=== PATIENT | male | born 1940 | race Caucasian/White ===

== ENCOUNTER 2022-12-07 11:15 | Outpatient (RCR) | payer MEDICARE, BC, SELFPAY | END 2023-02-21 16:30 | disposition home or self-care (01) | PROVIDERS: PCP Family Medicine; Visit Provider Physician Assistant | DX: H81.12 Benign paroxysmal vertigo, left ear (principal); R26.81 Unsteadiness on feet; Z51.89 Encounter for other specified aftercare | CPT/HCPCS: 95992; 97112; 97140; 97161; 97535 ==

== ENCOUNTER 2023-09-07 14:30 | Outpatient (RCR) | payer MEDICARE, BC, SELFPAY | END 2023-11-07 14:12 | disposition home or self-care (01) | PROVIDERS: PCP Family Medicine; Visit Provider Family Medicine | DX: M17.12 Unilateral primary osteoarthritis, left knee (principal); Z51.89 Encounter for other specified aftercare | CPT/HCPCS: 97110; 97140; 97161 ==

== ENCOUNTER 2024-05-21 10:00 | Outpatient (RCR) | payer MEDICARE, BC, SELFPAY | END 2024-05-21 10:50 | disposition home or self-care (01) | PROVIDERS: PCP Family Medicine; Visit Provider Family Medicine | DX: H81.12 Benign paroxysmal vertigo, left ear (principal); M99.01 Segmental and somatic dysfunction of cervical region; Z51.89 Encounter for other specified aftercare | CPT/HCPCS: 97110; 97140; 97161 ==

== ENCOUNTER 2025-01-01 07:23 | Outpatient (CLI) | payer MEDICARE, BC, SELFPAY | END 2025-01-01 07:24 | disposition home or self-care (01) | PROVIDERS: PCP Family Medicine; Visit Provider Nurse Anesthetist, Certified Registered | DX: M17.12 Unilateral primary osteoarthritis, left knee (principal); M25.562 Pain in left knee | CPT/HCPCS: 64454 ==

== ENCOUNTER 2025-01-15 09:31 | Outpatient (CLI) | payer MEDICARE, BC, SELFPAY | END 2025-01-15 09:32 | disposition home or self-care (01) | LOC: INJ CL 09:31 | PROVIDERS: PCP Family Medicine; Visit Provider Nurse Anesthetist, Certified Registered | DX: M17.12 Unilateral primary osteoarthritis, left knee (principal) | CPT/HCPCS: 64624; J0665; J0702; J1885 ==